=== PATIENT | male | born 1975 | race Caucasian/White ===

== ENCOUNTER 2018-06-21 10:53 | Emergency (ER) | payer OTHER ==
[2018-06-21] MEDS ORDERED: LORazepam 2 MG/ML INJ IVP ONE (11:13)
[2018-06-21] MEDS ORDERED: NS 500 ML IV ONE (11:14)
[2018-06-21] MEDS ORDERED: ASPIRIN 81 MG CHEWABLE TAB PO ONE (11:14)
--- NOTE | 2018-06-21 11:16 | EDPHY ---
Addendum entered and electronically signed by Tim Allison MD 06/21/18 12: 40: EKG: Complete interpretation has been separately recorded in the [facility] archive. Summary impression: Sinus tachycardia, rate 105, no ST segment elevation or depression noted Original Note: H & P Stated Complaint: anxiety, not feeling well, bilateral arm numbness, concerned about heart - Personal History Current Tetanus/Diphtheria Vaccine: Yes Current Tetanus Diphtheria and Acellular Pertussis (TDAP): Yes Tetanus Vaccine Date: 2016 - Medical/Surgical History Hx Asthma: No Hx Chronic Respiratory Disease: No Hx Diabetes: No Hx Cardiac Disease: No Hx Renal Disease: No Hx Cirrhosis: No Hx Alcoholism: No Hx HIV/AIDS: No Hx Splenectomy or Spleen Trauma: No - Social History Smoking Status: Never smoked Time Seen by Provider: 06/21/18 11:06 HPI/ROS: CHIEF COMPLAINT: Chest discomfort, palpitations, anxiety x2 days HISTORY OF PRESENT ILLNESS: 43-year-old male generally healthy via private vehicle with his complaining of 2 days of dull chest discomfort, palpitations, anxiety. When symptoms 1st started he exercised for 1 hr on elliptical equestrian trainer as well as weight training and notes that he felt improvement after exercise, did not develop chest pain with exertion or dyspnea with exertion, did not have to cease activity prematurely. He is concerned this may be related to cardiac etiology. Denies prior history of cardiac disease or VTE. Denies family history premature coronary disease or VTE. PRIMARY CARE PROVIDER: REVIEW OF SYSTEMS: 10 systems reviewed and negative with the exception of the elements mentioned in the history of present illness PAST MEDICAL & SURGICAL HISTORY: None SOCIAL HISTORY: 5-7 drinks of alcohol per day. No tobacco abuse. No cocaine use. FAMILY HISTORY: No family history of VTE, premature coronary artery disease, sudden unexplained PHYSICAL EXAM (Prior to examination, patient consented to physical exam, hands were washed and my usual and customary physical exam procedures followed) 1) GENERAL: Well-developed, well-nourished, alert and oriented. Appears anxious. 2) HEAD: Normocephalic, atraumatic 3) HEENT: Pupils equal, round, reactive to light bilaterally. Sclera anicteric. 4) NECK: Full range of motion, no meningeal signs. No carotid bruit 5) LUNGS: Clear auscultation bilaterally, no wheezes, no rhonchi, no retractions. 6) HEART: Regular rate and rhythm, no murmur, no heave, no gallop. 7) ABDOMEN: No guarding, no rebound, no focal tenderness, negative McBurney's, negative Ott's, negative Rovsing's, negative peritoneal sign, negative Homans no palpable cord 8) MUSCULOSKELETAL: Moving all extremities, no focal areas of tenderness, no obvious trauma. No peripheral edema or discoloration. 9) BACK: No CVA tenderness, no midline vertebral tenderness, no fluctuance, no step-off, no obvious trauma, no visual or palpable abnormality. 10) SKIN: No rash, no petechiae. 11) Psychiatric: Patient is oriented X 3, there is no agitation. DIFFERENTIAL DIAGNOSIS: In no particular order, including but not limited to myocardial ischemia, pulmonary embolus, chest wall pain, pleural inflammation and pulmonary infectious causes. (Nathalia Shanks) Constitutional: Initial Vital Signs Temperature (C) 36.7 C 06/21/18 10:55 Heart Rate 111 H 06/21/18 10:55 Respiratory Rate 18 06/21/18 10:55 Blood Pressure 171/113 H 06/21/18 10:55 O2 Sat (%) 97 06/21/18 10:55 O2 Delivery Mode Room Air Allergies/Adverse Reactions: No Known Allergies Allergy (Unverified 06/21/18 11:00) Home Medications: Medication Instructions Recorded NK [No Known Home Meds] 06/21/18 Medical Decision Making - Diagnostics Imaging Results: Imaging Impressions Chest X-Ray 06/21/18 11:14 Impression: Normal chest x-ray. Images reviewed myself (Nathalia Shanks) ED Course/Re-evaluation: 12:50 p.m.: Re-evaluation. Patient been given aspirin, Ativan. Re- evaluation. Heart rate in the 90s. His tremors have resolved. He smiling, appears improved. Discussed his laboratory studies including negative troponin , negative D-dimer which I think adequately excludes pulmonary embolus in this patient whom I have a moderate pretest suspicion for pulmonary embolus. Do not think that the benefits of CT imaging outweigh the risks. Patient also explains performing heavy exertional activity for 1 hr which actually improved his symptoms yesterday, he did not experience chest pain with exertion or dyspnea with exertion. I think the cardiac etiology is less than likely in this patient. I did recommend moderation of alcohol. Recommend follow up with primary care provider. He feels comfortable being discharged. Patient feels comfortable being discharged. All questions and concerns addressed by myself. Patient given my usual and customary discharge precautions and instructions regarding their clinical impression. Care of patient under supervision of primary Supervising physician Dr Allison with whom I discussed case. (Nathalia Shanks) Other Provider: PHYSICIAN DOCUMENTATION: The patient was evaluated and managed by the Physician Motorcycle Subassembly Repairer. My co- signature indicates that I have reviewed this chart and I agree with the findings and plan of care as documented. I am the secondary supervising physician. (Tim Allison) - Data Points Laboratory Results: Laboratory Results 06/21/18 11:55 06/21/18 11:05 06/21/18 06/21/18 06/21/18 12:17 11:55 11:16 WBC 9.56 10^3/uL H 10^3/uL (3.80-9.50) RBC 5.21 10^6/uL 10^6/uL (4.40-6.38) Hgb 16.6 g/dL g/dL (13.7-17.5) Hct 45.9 % % (40.0-51.0) MCV 88.1 fL fL (81.5-99.8) MCH 31.9 pg pg (27.9-34.1) MCHC 36.2 g/dL g/dL (32.4-36.7) RDW 11.8 % % (11.5-15.2) Plt Count 197 10^3/uL 10^3/uL (150-400) MPV 10.6 fL fL (8.7-11.7) Neut % (Auto) 54.3 % % (39.3-74.2) Lymph % (Auto) 34.9 % % (15.0-45.0) [place] % (Auto) 7.7 % % (4.5-13.0) Eos % (Auto) 2.4 % % (0.6-7.6) Baso % (Auto) 0.4 % % (0.3-1.7) Nucleat RBC Rel Count 0.0 % % (0.0-0.2) Absolute Neuts (auto) 5.18 10^3/uL 10^3/uL (1.70-6.50) Absolute Lymphs (auto) 3.34 10^3/uL H 10^3/uL (1.00-3.00) Absolute Monos (auto) 0.74 10^3/uL 10^3/uL (0.30-0.80) Absolute Eos (auto) 0.23 10^3/uL 10^3/uL (0.03-0.40) Absolute Basos (auto) 0.04 10^3/uL 10^3/uL (0.02-0.10) Absolute Nucleated RBC 0.00 10^3/uL 10^3/uL (0-0.01) Immature Gran % 0.3 % % (0.0-1.1) Immature Gran # 0.03 10^3/uL 10^3/uL (0.00-0.10) D-Dimer 0.32 ug/mLFEU ug/mLFEU (0.00-0.50) Sodium Potassium Chloride Carbon Dioxide Anion Gap BUN Creatinine Estimated GFR Glucose Calcium Total Bilirubin Conjugated Bilirubin Unconjugated Bilirubin AST ALT Alkaline Phosphatase POC Troponin I 0.00 ng/mL ng/mL (0.00-0.08) Total Protein Albumin Lipase 06/21/18 11:05 WBC RBC Hgb Hct MCV MCH MCHC RDW Plt Count MPV Neut % (Auto) Lymph % (Auto) [place] % (Auto) Eos % (Auto) Baso % (Auto) Nucleat RBC Rel Count Absolute Neuts (auto) Absolute Lymphs (auto) Absolute Monos (auto) Absolute Eos (auto) Absolute Basos (auto) Absolute Nucleated RBC Immature Gran % Immature Gran # D-Dimer Sodium 139 mEq/L mEq/L (135-145) Potassium 3.9 mEq/L mEq/L (3.5-5.2) Chloride 102 mEq/L mEq/L (97-110) Carbon Dioxide 23 mEq/l mEq/l (22-31) Anion Gap 14 mEq/L mEq/L (6-14) BUN 10 mg/dL mg/dL (7-23) Creatinine 0.8 mg/dL mg/dL (0.7-1.3) Estimated GFR > 60 Glucose 108 mg/dL H mg/dL (70-100) Calcium 10.0 mg/dL mg/dL (8.5-10.4) Total Bilirubin 0.7 mg/dL mg/dL (0.1-1.4) Conjugated Bilirubin 0.4 mg/dL mg/dL (0.0-0.5) Unconjugated Bilirubin 0.3 mg/dL mg/dL (0.0-1.1) AST 31 IU/L IU/L (17-59) ALT 56 IU/L IU/L (21-72) Alkaline Phosphatase 53 IU/L IU/L (38-126) POC Troponin I Total Protein 8.6 g/dL H g/dL (6.3-8.2) Albumin 5.1 g/dL H g/dL (3.5-5.0) Lipase 82 IU/L IU/L (23-300) Medications Given: Discontinued Medications Aspirin (Aspirin) 324 mg PO EDNOW ONE Stop: 06/21/18 11:15 Last Admin: 06/21/18 11:20 Dose: 324 mg Sodium Chloride (Ns) 500 mls @ 1,000 mls/hr IV EDNOW ONE PRN Reason: Protocol Stop: 06/21/18 11:43 Last Admin: 06/21/18 11:21 Dose: 500 mls Lorazepam (Ativan Injection) 1 mg IVP EDNOW ONE Stop: 06/21/18 11:14 Last Admin: 06/21/18 11:20 Dose: 1 mg Point of Care Test Results: Chemistry 06/21/18 11:16 POC Troponin I 0.00 ng/mL ng/mL (0.00-0.08) Departure - Departure Disposition: Home, Routine, Self-Care Clinical Impression: Anxiety, Palpitations Condition: Good Instructions: Heart Palpitations (ED) Additional Instructions: Seek medical attention if you develop new or worsening chest pain, if you develop new or worsening shortness of breath, or any other symptoms that concern you. Referrals: Akanksha Bassett MD [[facility] [place] Primary Care Provider] - As per Instructions
[2018-06-21 11:56] LABS: PLATELET COUNT 197 10^3/uL (150-400)
--- NOTE | 2018-06-21 12:42 | CPEKG ---
Test Reason : OPEN Blood Pressure : / mmHG Vent. Rate : 105 BPM Atrial Rate : 106 BPM P-R Int : 149 ms QRS Dur : 102 ms QT Int : 338 ms P-R-T Axes : 063 -23 008 degrees QTc Int : 447 ms Sinus tachycardia Borderline left axis deviation Confirmed by Tim Allison ([id number]) on 06/21/2018 12:41:41 PM Referred By: Tim Allison Confirmed By:Tim Allison
[2018-06-21 13:10] VITALS: BP 156/92
== END 2018-06-21 13:10 | disposition home or self-care (01) ==
DX: F41.9 Anxiety disorder, unspecified (principal); R00.2 Palpitations; E86.9 Volume depletion, unspecified
CPT/HCPCS: 84484-ER; 96374; J2060

== ENCOUNTER → 2018-07-25 | Outpatient (CLI) | payer OTHER | LOC: EMCIMAGING 09:43 | PROVIDERS: ATTEND Neurological Surgery | DX: G93.89 Other specified disorders of brain (principal) | CPT/HCPCS: 70553-PN ==

== ENCOUNTER 2018-09-07 13:23 | Emergency (ER) | payer OTHER | END 2018-09-07 16:17 | disposition home or self-care (01) ==